=== PATIENT | male | born 1990 | race Caucasian/White ===

== ENCOUNTER 2025-04-16 12:22 | Emergency (ER) | payer BC, SELFPAY ==
[2025-04-16 12:23] VITALS: BMI 26.6
--- NOTE | 2025-04-16 12:29 | PD.EDABDPN ---
ED Abdominal Pain RME/HPI General Chief Complaint: Abdominal Pain Stated complaint: RLQ/LLQ ABD PAIN, N/V SINCE 9AM Time seen by provider: 04/16/25 12:26 Arrival date/time: 04/16/25 12:22 Limitations: no limitations RME / HPI RME / HPI narrative: 34 male with no chronic medical history is here today with right side abdominal pain that he developed this morning at around 9 AM. He has nausea and vomited. He has no diarrhea. Denies any ear complaints. He has no fevers or chills. He denies any past surgeries. He did take ibuprofen 600 mg this morning without significant relief. He has no other acute complaints or concerns.. Related Data Previous Rx's ?Medication ?Instructions ?Recorded meloxicam 15 mg tablet 15 mg PO QDAY #30 tabs 03/14/21 naproxen 500 mg tablet 500 mg PO BID #14 tabs 04/16/25 tamsulosin 0.4 mg capsule (Flomax) 0.4 mg PO QDAY #20 caps 04/16/25 Allergies Allergy/AdvReac Type Severity Reaction Status Date / Time No Known Allergies Allergy Verified 04/16/25 12:25 Review of Systems Review of Systems Systems Reviewed: All systems reviewed, normal except as documented ED Exam General Limitations: Present no limitations General appearance: Present alert and in no apparent distress Head Head exam: Present atraumatic Eye Eye exam: Present normal appearance, PERRL and EOMI ENT ENT exam: Present normal exam, normal oropharynx and mucous membranes moist Neck Neck exam: Present normal inspection, full ROM and trachea midline Chest Chest inspection: Present normal inspection and symmetric chest wall rise Respiratory Respiratory exam: Present normal lung sounds bilaterally Cardiovascular Cardiovascular exam: Present regular rate, normal rhythm and normal heart sounds Abdominal Exam Abdominal exam: Present soft and normal bowel sounds Extremities Exam Extremities exam: Present normal inspection and full ROM Back Exam Back exam: Present normal inspection and full ROM Neurological Exam Neurological exam: Present alert and oriented X3 Psychiatric Psychiatric exam: Present normal affect and normal mood Skin Skin exam: Present warm, dry, intact and normal color Course Quality Measures none Orders Category Date Time Status CT abdomen pelvis wo con Stat Exams 04/16/25 16:00 Completed CBC Stat Lab 04/16/25 12:34 Completed CMP [Comprehensive Metabolic Panel] Stat Lab 04/16/25 12:34 Completed Lipase Stat Lab 04/16/25 12:34 Completed UA, C/S IF [Urinalysis, C/S if Indicated] Stat Lab 04/16/25 12:55 Completed HYDROcodone*/APAP 5/325 [[place] 5/325] Med 04/16/25 12:27 Discontinued 1 tab PO X1 ONE Ketorolac Inj [Toradol Inj] Med 04/16/25 16:13 Discontinued 15 mg IM X1 ONE Ketorolac Inj [Toradol Inj] Med 04/16/25 16:00 Discontinued 15 mg IVP X1 ONE Ondansetron Odt [Zofran Odt] Med 04/16/25 12:27 Discontinued 4 mg PO X1 ONE Tamsulosin HCl [Flomax] Med 04/16/25 18:01 Discontinued 0.4 mg PO X1 ONE Vital Signs Vital signs: Vital Signs Temperature 98.0 F 04/16/25 12:41 Pulse Rate 69 04/16/25 12:41 Respiratory Rate 19 04/16/25 12:41 Blood Pressure 136/88 H 04/16/25 12:41 Pulse Oximetry (%) 97 04/16/25 12:41 Oxygen Delivery Method Room Air 04/16/25 12:41 Abdominal Pain MDM MDM Narrative MDM Narrative:: 34 male with no chronic medical history is here today with right side abdominal pain that he developed this morning at around 9 AM. He has nausea and vomited. He has no diarrhea. Denies any ear complaints. He has no fevers or chills. He denies any past surgeries. He did take ibuprofen 600 mg this morning without significant relief. He has no other acute complaints or concerns.. On exam, patient was initially uncomfortable appearing. Vital signs stable. He has symptoms improved after medication management. Workup revealed a 5-year stone in the distal left ureter. Patient was discharged with a prescription of Flomax and naproxen. Return precautions were discussed. He agrees return as needed for any worsening or emergent changes. Patient data External records reviewed:: None Clinical information provided by:: patient Social determinants that could affect healthcare access:: none Patient has the following chronic illnesses:: n/a How is presenting disease/condition affected by chronic disease/condition?: no chronic disease Evaluation data The following diagnostics were reviewed and interpreted by me:: lab results (No leukocytosis or metabolic derangement. Few erythrocytes in the urine) and radiology exam(s) (5 mm stone in the distal left ureter) Lab and/or radiology exams considered but not ordered:: n/a Interpretation Summary: Uretolithiasis Medications / Prescriptions Medications or Prescriptions considered but not ordered:: n/a Medication administrations:: Medication Administration History Discontinued Medications Hydrocodone Bitart/Acetaminophen (Hydrocodone/Apap 5/325 Tablet) 1 tab PO X1 ONE Stop: 04/16/25 12:28 Last Admin: 04/16/25 12:45 Dose: 1 tab Documented By: PAOLA Ketorolac Tromethamine (Ketorolac Inj 30 Mg/Ml Vial) 15 mg IVP X1 ONE Stop: 04/16/25 16:01 Last Admin: 04/16/25 16:50 Dose: Not Given Documented By: GIA Non-Admin Reason: Discontinued Ketorolac Tromethamine (Ketorolac Inj 60 Mg/2 Ml Vial) 15 mg IM X1 ONE Stop: 04/16/25 16:14 Last Admin: 04/16/25 16:48 Dose: 15 mg Documented By: GIA Ondansetron HCl (Ondansetron Odt 4 Mg Tabrap) 4 mg PO X1 ONE; Protocol Stop: 04/16/25 12:28 Last Admin: 04/16/25 12:41 Dose: 4 mg Documented By: PAOLA Tamsulosin HCl (Tamsulosin Hcl 0.4 Mg Capsule) 0.4 mg PO X1 ONE Stop: 04/16/25 18:02 See above Consultations Consultation(s) initiated? (list below): No Diagnosis Differential diagnosis abdominal pain: abdominal pain, calculus of kidney, gastroenteritis and pancreatitis Most likely diagnosis given after review of the tests above:: Uretolithiasis Admission Indicated Admission indicated?: not indicated Admission Request Was there a request for admission?: No Disposition Plan Disposition Plan: Discharge Discharge Attestation Discharge Attestation: The patient and all family members were given an opportunity to ask questions and understood the discharge instructions. Discharge instructions specifically effects, indications for sooner follow up or return to the emergency department, and the expected course of current diagnosis. Patient condition: Stable Discharge Plan Plan Patient Disposition: HOME (Self Care) Patient condition on transfer: Stable Prescriptions/Referrals Prescriptions/Med Rec: New naproxen 500 mg tablet 500 mg PO BID Qty: 14 0RF tamsulosin [Flomax] 0.4 mg capsule 0.4 mg PO QDAY Qty: 20 0RF No Action meloxicam 15 mg tablet 15 mg PO QDAY Qty: 30 0RF Referrals: Rocky Mcclellan MD [Primary Care Provider] - In 1 week Problem List Clinical Impression: Ureterolithiasis Patient/Caregiver Discharge Instructions Education Materials: ED Kidney Stone w/ Colic Additional Instructions: - Increase oral hydration. Use the provided medication as prescribed. -Please do not hesitate to return here for any worsening changes. Print Language: British Stand Alone Forms: [facility]hell Award Info., Patient Portal Info Letter
[2025-04-16 12:41] VITALS: BP 136/88; PULSE 69; RESP 19; TEMP 36.7; O2SAT 97
[2025-04-16] MEDS: ONDANSETRON ODT 4 MG TABRAP PO (12:41)
[2025-04-16] MEDS: HYDROcodone/APAP 5/325 TABLET 1 TAB PO (12:45)
[2025-04-16 13:03] LABS: Basophils # (Auto) 0.0 Thou/mm3 (0.0-0.2); Basophils % (Auto) 0 % (0-2.5); Eosinophils # (Auto) 0.0 Thou/mm3 (0.0-0.5); Eosinophils % (Auto) 0 % (0-10); Hematocrit 44.1 % (41.0-53.0); Hemoglobin 15.9 g/dL (13.5-16.0); Immature Granulocytes Auto 0.12 Thou/mm3 (0.00-0.00); Lymphocytes # (Auto) 1.3 Thou/mm3 (1.0-4.8); Lymphocytes % (Auto) 10 % (10-50); Mean Corpuscular HGB Conc 36.1 g/dl (31.0-37.0); Mean Corpuscular Hemoglobin 32.6 pg (25.0-35.0); Mean Corpuscular Volume 91 fL (80-100); Monocytes # (Auto) 0.6 Thou/mm3 (0.0-0.8); Monocytes % (Auto) 5 % (0-12); Neutrophils # (Auto) 10.7 Thou/mm3 (1.8-7.7); Neutrophils % (Auto) 84 % (37-80); Nucleated Red Blood Cell # 0.00 Thou/mm3 (0.00-0.00); Nucleated Red Blood Cell % 0 /100 WBC (0); Platelet Count 156 Thou/mm3 (140-440); RDW Standard Deviation 42.2 fL (35.1-43.9); Red Blood Count 4.87 Miln/mm3 (4.50-5.90); White Blood Count 12.7 Thou/mm3 (3.8-10.6)
[2025-04-16 13:11] LABS: Collection Type, Urine Voided
[2025-04-16 13:17] LABS: Alanine Aminotransferase 23 U/L (10-49); Albumin, Serum 4.7 gm/dL (3.5-5.0); Albumin/Globulin Ratio 1.8 (1.2-2.2); Alkaline Phosphatase 69 U/L (46-116); Anion Gap 11 (7-16); Aspartate Amino Transferase 23 U/L (0-34); BUN/Creatinine Ratio 9 Ratio (12-20); Bilirubin,Total 0.8 mg/dL (0.3-1.2); Blood Urea Nitrogen 12 mg/dL (9-23); Calcium 9.4 mg/dL (8.3-10.6); Calcium (Corrected) 9.4 mg/dL (8.5-10.1); Carbon Dioxide 25.6 mMol/L (20.0-31.0); Chloride 105 mMol/L (98-107); Creatinine (Component) 1.4 mg/dL (0.6-1.3); Estimated Creatinine Clearance 72.9 mL/min (>60); Globulin 2.6 gm/dL (2.3-3.5); Glucose 145 mg/dL (74-106); Lipase 31 U/L (12-53); Osmolality,Calculated 285 (275-295); Potassium 4.3 mMol/L (3.4-5.1); Sodium 142 mMol/L (136-145); Total Protein 7.3 gm/dL (5.7-8.2); eGFR > 60 See Note
[2025-04-16 13:55] LABS: Amorphous Crystals,Urine Present (Absent); Bilirubin,Urine Negative (Negative); Blood,Urine 3+ (Negative); Color,Urine Yellow (Lt Yel-Yel); Culture Indicated,Urine Not Indicated; Glucose, Urine Negative (Negative); Ketones,Urine Negative (Negative); Leukocyte Esterase,Urine Negative (Negative); Nitrite,Urine Negative (Negative); PH,Urine 6.0 (5.0-7.0); Protein,Urine 1+ (Neg - Trace); RBC,Urine 12 /hpf (0-3); Specific Gravity,Urine 1.037 (1.001-1.035); Squamous Epithelial Cell,Urine < 1 /hpf (0-5); Urobilinogen,Urine Negative mg/dL (0.0-1.0); WBC,Urine 4 /hpf (0-5)
[2025-04-16 14:00] LABS: Clarity,Urine Cloudy (Clear/Hazy)
--- NOTE | 2025-04-16 16:00 | XR_ITS ---
Examination: CT abdomen and pelvis without contrast. Coronal 3-D reconstructions. Sagittal 2-D reconstructions. Date and time of exam:April 16, 2025, 7005 hours INDICATIONS: Left flank pain and microscopic hematuria today CTDI: vol (mGy): 7.65 DLP: (mGycm): 494 Technique: Axial images of the abdomen have been obtained, 3 mm slice thickness Intravenous contrast material has not been administered. Low dose protocols were performed. One or more of the following dose reduction techniques were used; automated exposure control, adjustment of the mA and/or KV according to patient size, use of iterative reconstruction technique. Findings: No focal liver or splenic lesions No gallstones No pancreatic or adrenal mass 3 mm 4 mm right renal calculi Mild left hydronephrosis, 5 mm distal left ureterovesical junction calculus Normal appendix No bowel obstruction Urinary bladder intact Fat-containing left inguinal hernia IMPRESSION: Mild left hydronephrosis, 5 mm distal left ureterovesical junction calculus
[2025-04-16] MEDS: KETOROLAC INJ 60 MG/2 ML VIAL 15 MG IM (16:48)
[2025-04-16] MEDS: TAMSULOSIN HCL 0.4 MG CAPSULE PO (18:12)
== END 2025-04-16 18:17 | disposition home or self-care (01) ==
PROVIDERS: Physician Assistant Medical; Emergency Provider Emergency Medicine; PCP Internal Medicine
DX: N13.2 Hydronephrosis with renal and ureteral calculous obstruction (principal)
CPT/HCPCS: 36415; 74176; 80053; 81001; 83690; 85025; 96372; 99284; J1885; Q0162; A9270

== ENCOUNTER → 2025-07-04 | Outpatient (CLI) | payer BC, SELFPAY ==
[2025-07-04 15:45] LABS: Collection Type, Urine Clean Catch; Squamous Epithelial Cell,Urine 0 /hpf (0-5)
[2025-07-04 16:11] LABS: Bilirubin,Urine Negative (Negative); Blood,Urine Negative (Negative); Clarity,Urine Clear (Clear/Hazy); Color,Urine Lt-Yellow (Lt Yel-Yel); Glucose, Urine Negative (Negative); Ketones,Urine Negative (Negative); Leukocyte Esterase,Urine Positive (Negative); Nitrite,Urine Negative (Negative); PH,Urine 7.0 (5.0-7.0); Protein,Urine Negative (Neg - Trace); RBC,Urine 2 /hpf (0-3); Specific Gravity,Urine 1.025 (1.001-1.035); Urobilinogen,Urine Negative mg/dL (0.0-1.0); WBC,Urine 11 /hpf (0-5)
[2025-07-04 16:39] LABS: Culture Indicated,Urine Yes
[2025-07-05 10:10] LABS: Chlamydia trachomatis PCR Positive (Not Detect); Neisseria Gonorrhoeae DNA PCR Negative (Not Detect); Trichomonas Negative (Negative)
== END | disposition home or self-care (01) ==
LOC: SLDO 15:30
PROVIDERS: PCP Internal Medicine; Referring Provider Internal Medicine; Visit Provider Internal Medicine
DX: N39.0 Urinary tract infection, site not specified (principal)
CPT/HCPCS: 81001; 87086; 87491; 87591; 87661